=== PATIENT | female | born 1980 | race Two or more races ===

== ENCOUNTER 2018-03-26 00:57 | Emergency (ER) | payer OTHER ==
[~2018-03-26] VITALS: Ht 149.9 cm; Wt 43.1 kg
[2018-03-26] MEDS ORDERED: SPRINTEC 28 DA1 EACH (01:16)
[2018-03-26] MEDS ORDERED: BISMUTH262 MG (01:18)
== END 2018-03-26 11:01 | disposition home or self-care (01) ==
LOC: ER 00:57
DX: K52.89 Other specified noninfective gastroenteritis and colitis (principal)